=== PATIENT | male | born 1980 | race African-American/Black ===

== ENCOUNTER 2016-05-25 17:36 | Emergency (ER) | payer MEDICAID, OTHER, SELFPAY ==
[~2016-05-25] VITALS: Ht 170.2 cm; Wt 82.9 kg
[2016-05-25 17:37] VITALS: BP 135/90
== END 2016-05-25 20:14 | disposition home or self-care (01) ==
LOC: ED 20:08
DX: F15.129 Other stimulant abuse with intoxication, unspecified (principal); F12.129 Cannabis abuse with intoxication, unspecified; F41.9 Anxiety disorder, unspecified; Z88.8 Allergy status to other drugs, medicaments and biological substances
CPT/HCPCS: 99284

== ENCOUNTER 2019-08-22 23:42 | Emergency (ER) | payer MEDICARE, MEDICAID ==
[~2019-08-22] VITALS: Ht 177.8 cm; Wt 69.0 kg
[2019-08-22 23:44] VITALS: BP 113/81
--- NOTE | 2019-08-22 23:46 | NUR ---
PT BIB [facility], PT WAS FOUND LAYING ON SIDE WALK BY ROXIE WHO THEN CALLED [facility] AND INSTRUCTED TO BRING TO [facility], [place], PT WAS AMBULATORY AND DRINKING OUT OF THE SINK TAP, PT ANSWERS ALL QUESTIONS APPROPIATELY, PT HAS IMPULSIVE MOVEMENTS, PT STATES THAT HE SMOKED CRYSTAL METH
--- NOTE | 2019-08-22 23:47 | NUR ---
Pt uncooperative w/ majority of exam and refusing to answer most questions asked. A+ox4. States smoking unknown substance and seeing and hearing hallucinations. Denies si/ hi. States hx of schizophrenia, but does not report any futher hx. Pt flailing arms around and twitching head to side consistently. Drinking out of and flooding sink. Told not to and continues to go back afte reorienting. Report to Rasheeda varghese.
--- NOTE | 2019-08-23 01:00 | NUR ---
PT SLEEPING AT THIS TIME
--- NOTE | 2019-08-23 01:52 | NUR ---
PT THREW JULIO HEAD WAITRESS ROOM, PT ESCORTED OUT BY SECURITY
== END 2019-08-23 01:55 | disposition home or self-care (01) ==
LOC: ED 08-23 01:20
DX: F15.20 Other stimulant dependence, uncomplicated (principal)
CPT/HCPCS: 99283

== ENCOUNTER 2019-08-24 21:18 | Emergency (ER) | payer MEDICAID, MEDICARE ==
[~2019-08-24] VITALS: Ht 185.4 cm; Wt 70.0 kg
--- NOTE | 2019-08-24 21:27 | NUR ---
REPORT GIVEN TO ASSIGNED RN.
--- NOTE | 2019-08-24 21:29 | NUR ---
THIS IS A 39Y M BIB EMS WAS FOUND RUNNING DOWN [address] NAKED, PER EMS PT WAS COMBATIVE AND WAS PLACED ON LEGAL HOLD BY [employer] FOR INABILITY TO CARE FOR SELF. PT WAS MEDICATED LICENSED EMBALMER. PT ARRIVED CALM, MAINTAINING AIRWAY AND ASLEEP. PT CONNECTED TO MONITORING, BENY MCKENNA MD AT BEDSIDE TO ASSESS PT.
[2019-08-24 21:47] LABS: BASOPHILS # (AUTO) 0.02 x10^3/uL (0-0.1); BASOPHILS % (AUTO) 0 % (0-1); EOSINOPHILS # (AUTO) 0.06 x10^3/uL (0-0.4); EOSINOPHILS % (AUTO) 1 % (1-7); LYMPHOCYTES # (AUTO) 1.45 x10^3/uL (1-3.4); LYMPHOCYTES % (AUTO) 19 % (22-44); MD NO; MEAN CORPUSCULAR HEMOGLOBIN 29.5 pg (27.5-34.5); MEAN CORPUSCULAR VOLUME 89.6 fL (81-97); MEAN PLATELET VOLUME 7.2 fL (7.4-10.4); MONOCYTES # (AUTO) 0.44 x10^3/uL (0.2-0.8); MONOCYTES % (AUTO) 6 % (2-9); NEUTROPHILS # (AUTO) 5.48 x10^3/uL (1.8-6.8); NEUTROPHILS % (AUTO) 74 % (42-75); PLATELET COUNT 319 x10^3/uL (130-400); RED CELL DISTRIBUTION WIDTH 13.8 % (9.4-14.8)
[2019-08-24 21:51] LABS: ALANINE AMINOTRANSFERASE 36 U/L (12-78); ALBUMIN 3.8 g/dL (3.4-5.0); ANION GAP 9 mmol/L (5-15); CALCIUM 8.9 mg/dL (8.5-10.1); CHLORIDE 113 mmol/L (98-107); CREATININE 1.05 mg/dL (0.7-1.3)
[2019-08-24 21:52] LABS: SALICYLATE LEVEL < 1.7 mg/dL (2.8-20.0)
[2019-08-24 21:53] LABS: ALKALINE PHOSPHATASE 105 U/L (45-117); BILIRUBIN,TOTAL 0.9 mg/dL (0.2-1.0); TOTAL PROTEIN 7.7 g/dL (6.4-8.2)
--- NOTE | 2019-08-24 22:03 | NUR ---
PT TO CT AT THIS TIME NADN. PT REMAINS ASLEEP AND CALM
--- NOTE | 2019-08-24 22:24 | NUR ---
PT BACK FROM CT RESTING ON [facility], [place].
--- NOTE | 2019-08-24 23:10 | NUR ---
PT STILL RESTING ON GURNEY RESP EVEN AND UNLABORED, EYES CLOSED. VSS
--- NOTE | 2019-08-25 00:16 | NUR ---
PT STILL RESTING ON ANDREA HINSON. VSS
--- NOTE | 2019-08-25 01:18 | NUR ---
PT STILL RESTING ON ANDREA NADN. PT AROUSABLE TO VERBAL STIMULI PROVIDED WITH WATER. PT BACK TO SLEEP.
--- NOTE | 2019-08-25 02:45 | NUR ---
URINE SENT TO LAB AT THIS TIME. PT NOW SIPPING WATER IN BED NO NEEDS AT THIS TIME.
[2019-08-25 02:48] LABS: AMPHETAMINE SCREEN, URINE Positive (Negative); BARBITURATE SCREEN, URINE Negative (Negative); BENZODIAZEPINE SCREEN, URINE Positive (Negative); CANNABINOID SCREEN, URINE Positive (Negative); COCAINE SCREEN, URINE Negative (Negative); METHADONE SCREEN, URINE Negative (Negative); OPIATE SCREEN, URINE Negative (Negative)
--- NOTE | 2019-08-25 03:45 | NUR ---
PT RESTING ON ANDREA HINSON
--- NOTE | 2019-08-25 04:50 | NUR ---
MD AT BEDSIDE TO EVAL PT FOR TELEPSYCH READINESS, PER MD PT UNABLE TO PARTICIPATE.
--- NOTE | 2019-08-25 06:17 | NUR ---
PT RESTING ON GURNEY NO NEEDS AT THIS TIME
--- NOTE | 2019-08-25 06:55 | NUR ---
REPORT FROM GOYO LAYTON
--- NOTE | 2019-08-25 07:10 | NUR ---
THROUGHPUT RN: RUDY NOTIFIED OF PT.
--- NOTE | 2019-08-25 08:56 | NUR ---
THROUGHPUT RN: SPOKE W/ KYMBERLY IN [facility] WHO STATES SHE WILL NOT MAKE A DECISION ON ACCEPTANCE UNTIL RADU, PSYCH CLERICAL COORDINATOR SEE'S PT IN ED.
--- NOTE | 2019-08-25 09:14 | NUR ---
THROUGHPUT RN: PACKET FAXED TO [facility], [facility], [facility], [facility], [facility], AND [facility].
--- NOTE | 2019-08-25 09:48 | NUR ---
Pt educated that bathrooms are available, it is not ok to poop/pee on floor in room.
--- NOTE | 2019-08-25 09:49 | NUR ---
safety precautions in place
--- NOTE | 2019-08-25 10:31 | NUR ---
Pt moved to 2. Pt resting in bed with eyes closed, resp even and unlabored, NADN. Room is secured, sitter within eyesight of pt.
[2019-08-25 10:33] VITALS: BP 105/49
--- NOTE | 2019-08-25 10:34 | NUR ---
Pt awakens to this RN entering room. Pt calm, cooperative, denies needs.
--- NOTE | 2019-08-25 11:12 | NUR ---
Report given to Devon LAYTON at [facility]. [facility] accepting pt state they are ready for pt transport anytime. Throughput RN and engraving supervisor notified of this.
== END 2019-08-25 12:53 ==
LOC: ED 08-25 06:40
DX: F15.150 Other stimulant abuse with stimulant-induced psychotic disorder with delusions (principal); R25.9 Unspecified abnormal involuntary movements; R41.82 Altered mental status, unspecified
CPT/HCPCS: 36415; 70450; 80053; 80307; 85025; 99285

== ENCOUNTER 2020-06-17 22:50 | Emergency (ER) | payer MEDICARE ==
[~2020-06-17] VITALS: Ht 165.1 cm; Wt 69.0 kg
[2020-06-17 22:56] VITALS: BP 107/68
== END 2020-06-17 23:46 | disposition home or self-care (01) ==
LOC: ED 23:19
DX: F15.129 Other stimulant abuse with intoxication, unspecified (principal); Z72.9 Problem related to lifestyle, unspecified
CPT/HCPCS: 99283

== ENCOUNTER 2020-06-25 08:53 | Emergency (ER) | payer MEDICARE, MEDICAID ==
[~2020-06-25] VITALS: Ht 180.3 cm; Wt 85.0 kg
[2020-06-25 08:55] VITALS: BP 112/61
--- NOTE | 2020-06-25 09:17 | NUR ---
PT CELINA FROM [facility] INTERMEDIATE. PER EMS PT HAS BILAT FOOT INFECTIONS. PT HAS HX OF DIABETES. PER PT HE DOES METH AND HEROIN, WELL DRINKING ALCOHOL EVERYDAY. PT RESTING IN [facility], MONITORING IN PLACE, NADN AT THIS TIME, WCTM. PT A&OX4, BUT ONLY ANSWERING SOME QUESTIONS.
[2020-06-25] MEDS ORDERED: CEFTRIAXONE 1,000 MG ONE (09:28)
[2020-06-25] MEDS ORDERED: CEFTRIAXONE 1,000 MG IM ONE (09:30)
--- NOTE | 2020-06-25 10:55 | NUR ---
PT REFUSING TO SHOWER, REFUSING TO ALLOW LAB TO DRAW, REFUSING IV, AND REFUSING DRESSING CHANGE. FADY SINGH AT BEDSIDE TO EDUCATE PT ON RISKS OF LEAVING AMA AND REFUSING CARE. PT STATES HE STILL WOULD LIKE TO LEAVE, BUT IS REFUSING TO GET OUT OF BED. SECURITY ALSO AT BEDSIDE TO ESCORT PT OUT. PT AMBULATED WITH STEADY GAIT OUTSIDE OF BUILDING.
== END 2020-06-25 10:58 | disposition left against medical advice (07) ==
LOC: ED 08:55
DX: L03.116 Cellulitis of left lower limb (principal); L03.115 Cellulitis of right lower limb; Z72.9 Problem related to lifestyle, unspecified
CPT/HCPCS: 73630; 96372; 99283; J0696

== ENCOUNTER 2020-07-11 10:13 | Emergency (ER) | payer MEDICARE, MEDICAID ==
[~2020-07-11] VITALS: Ht 162.6 cm; Wt 65.0 kg
--- NOTE | 2020-07-11 10:15 | NUR ---
Pt in 4-point swimmer's position restraints for EMS on arrival. Security at bedside to assist with moving pt from EMS gurney to ER gurney and placed in 4-point hard, locking restraints at this time for pt and staff safety. Pt noted to be sedated and localizes to painful stimuli with spastic, aggressive movements then back to sleep with removal of light stimulus. VSS, placed back on O2 for RA sats 88% enroute after Versed 5mg IM given and taking effect. Placed pt in gown and MD arrived at bedside for [id number] assessment as required for behavioral restraint orders.
--- NOTE | 2020-07-11 10:45 | NUR ---
wastewater technician at bedside for draw with success. Pt became extremely agitated with tech's initial verbal stimulus thrashing around on bed and was able to calm with verbal de-escalaltion. Security called for restraint removal at this time. .
--- NOTE | 2020-07-11 10:55 | NUR ---
Behavioral restraints removed by security from pt limbs x4 but left in place on bed for possible future needs. Pt did not move much during this process and VS remain stable.
[2020-07-11 11:06] LABS: BASOPHILS % (AUTO) 1 % (0-1); EOSINOPHILS % (AUTO) 2 % (1-7); LYMPHOCYTES % (AUTO) 28 % (22-44); MEAN CORPUSCULAR HEMOGLOBIN 28.8 pg (27.5-34.5); MEAN PLATELET VOLUME 6.9 fL (7.4-10.4); MONOCYTES % (AUTO) 7 % (2-9); NEUTROPHILS % (AUTO) 63 % (42-75); PLATELET COUNT 346 x10^3/uL (130-400); RED BLOOD COUNT 4.76 x10^6/uL (4.38-5.82)
[2020-07-11 11:08] LABS: MD NO
[2020-07-11 11:13] LABS: ALANINE AMINOTRANSFERASE 24 U/L (12-78); ALBUMIN 3.1 g/dL (3.4-5.0); ANION GAP 4 mmol/L (5-15); CALCIUM 8.3 mg/dL (8.5-10.1); CHLORIDE 110 mmol/L (98-107); CREATININE 0.94 mg/dL (0.7-1.3)
[2020-07-11 11:15] LABS: ALKALINE PHOSPHATASE 106 U/L (45-117); BILIRUBIN,TOTAL 0.2 mg/dL (0.2-1.0); TOTAL PROTEIN 7.1 g/dL (6.4-8.2)
--- NOTE | 2020-07-11 11:30 | NUR ---
Lab results reviewed and awaiting UA sample from pt when he is able for UTOX. Pt remains asleep/sedated at this time with VSS.
--- NOTE | 2020-07-11 11:55 | NUR ---
REport to meal break RN given and care transferred.
--- NOTE | 2020-07-11 12:25 | NUR ---
Report received and care re-assumed at this time. Pt found sleeping on R side and twitchy movements off/on present with VSS.
--- NOTE | 2020-07-11 13:14 | NUR ---
Pt remains asleep/sedated with self-repositioning frequently noted, NAD and VSS.
--- NOTE | 2020-07-11 14:04 | NUR ---
SAFETY BELT INSTALLER stopped by room to attempt evaluation, but pt remains too sedated and unable to participate. SAFETY BELT INSTALLER requests a call when pt awakens in order to do her evaluation as ordered.
--- NOTE | 2020-07-11 15:03 | NUR ---
Pt moved to room 43 via [facility] at this time. Pt asking for food. Sintia man ordered and JOHN Restrepo called for evaluation at this time.
--- NOTE | 2020-07-11 15:16 | NUR ---
Pt states he has no medical complaint at this time, denies using any drugs other than marijuana earlier today and denies feeling suicidal or homicidal at this time. Pt states "No" to whether or not he has been dx with schizophrenia or bipolar disorder. Awaiting dinner tray at this time and then pt is up for d/c per MD. MD states need for psych eval is no longer warranted as pt is not SI/HI or with medical/psych complaint.
--- NOTE | 2020-07-11 15:20 | NUR ---
security ian tray brought into pt room. Pt notified of pending d/c when done with food and is agreeable to that at this time.
[2020-07-11] MEDS ORDERED: OLANZAPINE ODT 10MG ONE (15:21)
--- NOTE | 2020-07-11 15:40 | NUR ---
Pt ate approx 25% of meal, large amount of urine noted in corner on the floor and pt states he did not know where the bathroom was. Pt provided clean socks and a shirt and taken out to ED lobby after stopping at d/c desk where he was able to provide his name and . Pt's name is Quintin, not Tyler. Pt then trying to leave ED lobby with a wheelchair and security called to escort pt out of dept lobby.
[2020-07-11 15:44] VITALS: BP 111/56
== END 2020-07-11 15:48 | disposition home or self-care (01) ==
LOC: MERGE 10:13 → EDBD 10:13 → ED 11:13
DX: F23 Brief psychotic disorder (principal); F22 Delusional disorders
CPT/HCPCS: 36415; 80053; 80320; 85025; 99285; G0480